=== PATIENT | male | born 1955 | race Hispanic/Latino ===

== ENCOUNTER 2023-07-07 18:47 | Emergency (ER) | payer OTHER ==
[~2023-07-07] VITALS: Ht 175.3 cm; Wt 79.4 kg
[2023-07-07 19:49] LABS: BASOPHILS # (AUTO) 0.04 K/uL (0.00-0.20); BASOPHILS % (AUTO) 0.5 % (0.0-5.0); EOSINOPHILS # (AUTO) 0.05 K/uL (0.00-0.70); EOSINOPHILS % (AUTO) 0.7 % (0.0-8.0); HEMATOCRIT 40.9 % (42-54); IMMATURE GRANULOCYTE ABSOLUTE 0.02 K/uL (0-1); LYMPHOCYTES % (AUTO) 27.3 % (21.0-51.0); MEAN CORPUSCULAR HEMOGLOBIN 31.6 pg (27.0-33.0); MONOCYTES # (AUTO) 0.6 K/uL (0.1-1.0); MONOCYTES % (AUTO) 8.5 % (3.0-13.0); NEUTROPHILS # (AUTO) 4.7 K/uL (1.8-7.7); NEUTROPHILS % (AUTO) 62.7 % (40.0-77.0); PLATELET COUNT (AUTO) 252 K/uL (130-400); RED CELL DISTRIBUTION WIDTH 12.7 % (11.0-15.5); WHITE BLOOD COUNT (AUTO) 7.4 K/uL (4.8-10.8)
[2023-07-07] MEDS ORDERED: CLONIDINE HCL 0.2 MG TABLET PO ONE (20:00)
[2023-07-07 20:03] LABS: CREATININE 1.1 mg/dL (0.5-1.5); POTASSIUM 4.2 mmol/L (3.5-5.1)
[2023-07-07 20:08] LABS: ALBUMIN 4.3 g/dL (3.5-5.0); BILIRUBIN,TOTAL 0.7 mg/dL (0.2-1.0); TOTAL PROTEIN, SERUM 7.8 g/dL (6.0-8.3)
[2023-07-07 20:16] LABS: B-TYPE NATRIURETIC PEPTIDE 118 pg/mL (0-100)
[2023-07-07] MEDS ORDERED: LISI20TA24 PO (21:02)
[2023-07-07 21:08] LABS: APPEARANCE,URINE CLEAR (CLEAR); BILIRUBIN,URINE NEGATIVE (NEGATIVE); GLUCOSE, URINE (UA) NEGATIVE (NEGATIVE); KETONES,URINE 5 mg/dL (NEGATIVE); LEUKOCYTE ESTERASE ,URINE NEGATIVE Leu/uL (NEGATIVE); NITRATE,URINE NEGATIVE (NEGATIVE); OCCULT BLOOD,URINE SMALL (NEGATIVE); PROTEIN,URINE NEGATIVE (NEGATIVE); UROBILINOGEN,URINE 0.2 mg/dL (0.2-1.0)
[2023-07-07 21:10] LABS: ADD UA MICROSCOPIC YES; COLOR,URINE LIGHT-YELLOW (YELLOW)
[2023-07-07 21:11] LABS: MUCUS,URINE RARE LPF (None Seen); WBC,URINE 0-1 /HPF (0-1)
[2023-07-07 21:22] VITALS: BP 166/81; PULSE 48; RESP 18; O2SAT 99
== END 2023-07-07 21:33 | disposition home or self-care (01) ==
LOC: EDH 18:47
DX: I10 Essential (primary) hypertension (principal); F41.9 Anxiety disorder, unspecified; F32.A Depression, unspecified
CPT/HCPCS: 36415; 71045; 80053; 81001; 82550; 83880; 84484; 85025; 85378; 93005

== ENCOUNTER 2025-05-07 06:14 | Observation (INO) | payer OTHER ==
[~2025-05-07] VITALS: Ht 175.3 cm; Wt 90.3 kg
[~2025-05-07 06:14] MED LIST: ARIP5TAB51 PO; BUSP10TA3 PO; CLON2TAB21 PO; ESCI-8 PO; ICOS1CAP PO; LISI40TA15 PO; PROP40TA7 PO; ROSU10TA72 PO
[2025-05-07 06:37] LABS: IMMATURE GRANULOCYTE ABSOLUTE 0.02 K/uL (0-1); NUCLEATED RED BLOOD CELLS 0.0 % (0.0-0.19); PLATELET COUNT (AUTO) 235 K/uL (130-400); RED BLOOD CELL COUNT(AUTO) 4.99 MIL/uL (4.50-6.20); RED CELL DISTRIBUTION WIDTH 12.9 % (11.0-15.5); WHITE BLOOD COUNT (AUTO) 7.9 K/uL (4.8-10.8)
--- NOTE | 2025-05-07 06:40 | ERN ---
General Chief Complaint: Chest Pain Stated Complaint: C/O CHEST PAIN Time Seen by MD: 06:32 Source: patient, family History of Present Illness Initial Comments Patient is a 70-year-old male who comes in with chest pain. This is the 1st time he has experienced this type of chest pain. He describes the pain as a kind of pressure. But he holds his hands open with his palms touching his chest as opposed to the classical Haines sign. He has no other associated symptoms such as shortness of breath or difficulty breathing or lightheadedness. No fevers no chills. He does have a history of panic attacks and he states that this feels different from his panic attacks. His brother mentioned that recently the patient has stopped one of his antidepressant medications. Allergies: Coded Allergies: No Known Allergies (Unverified Allergy, Unknown, 07/07/23) Home Meds Active Scripts Lisinopril (Lisinopril) 40 Mg Tablet, 1 TAB PO DAILY for 30 Days, #30 TAB 0 Refills Prov:ELLEN DAVID 10/06/24 Reported Medications Escitalopram Oxalate (Escitalopram Oxalate) 10 Mg Tablet, 1 TAB PO DAILY for 30 Days, #30 TAB 0 Refills 10/06/24 Clonazepam (Clonazepam) 2 Mg Tab.rapdis, 1 TAB PO TID PRN for ANXIETY/AGITATION for 30 Days, #90 TAB 0 Refills 10/06/24 Aripiprazole (Aripiprazole) 5 Mg Tablet, 2 MG PO HS, TAB 10/06/24 Icosapent Ethyl (Vascepa) 1 Gram Capsule, 2 GM PO BID, CAP 12/11/23 Buspirone HCl (Buspirone HCl) 10 Mg Tablet, 10 MG PO TID, TAB 12/11/23 Rosuvastatin Calcium (Rosuvastatin Calcium) 10 Mg Tablet, 10 MG PO HS, TAB 12/11/23 Propranolol HCl (Propranolol HCl) 40 Mg Tablet, 40 MG PO BID, TAB 12/11/23 Past Medical History Past Medical History: Diabetes-Type II, High Cholesterol, Hypertension Medical History Other: Panic Attacks, Depression Past Surgical History: Other Surgical History Other: HERNIA REPAIR Constitutional: (-) chills, (-) diaphoresis, (-) fever, (-) malaise, (-) weakness, (-) other documentation EENTM: (-) eye pain, (-) blurred vision, (-) tearing, (-) double vision, (-) ear pain, (-) ear discharge, (-) nose pain, (-) nose congestion, (-) throat pain, (-) Throat swelling, (-) mouth pain, (-) tooth pain, (-) mouth swelling, (-) other documentation Respiratory: (-) cough, (-) orthopnea, (-) short of breath, (-) stridor, (-) wheezing, (-) other documentation Cardiovascular: (+) chest pain Gastrointestinal/Abdominal: (-) nausea, (-) vomiting, (-) diarrhea, (-) abdominal pain, (-) abdominal distention, (-) constipation, (-) rectal bleeding, (-) dark stool/melena, (-) other documentation Genitourinary: (-) penile discharge, (-) dysuria, (-) frequency, (-) hematuria, (-) pain, (-) other documentation Musculoskeletal: (-) Neck pain, (-) back pain, (-) Flank Pain, (-) joint pain, (-) joint swelling, (-) muscle pain, (-) muscle stiffness, (-) gout, (-) other documentation Neuro: (-) altered mental status, (-) headache, (-) syncope, (-) paralysis, (-) numbness, (-) seizure, (-) pre-existing deficit, (-) tremors, (-) weakness, (-) dizziness, (-) slurred speech, (-) vertigo, (-) other documentation Physical Exam General Appearance: (+) mild distress Orientation: (+) alert, (+) oriented x 3 Head/Face Trauma: No Eye: bilateral eye normal inspection, bilateral eye PERRL, bilateral eye EOMI Ear, Nose, Throat: (+) hearing grossly normal, (+) normal ENT inspection Neck: (+) normal inspection, (+) supple, (+) full range of motion Respiratory: (+) chest non-tender, (+) lungs clear, (+) well ventilated Heart: (+) regular, (+) no gallop Vascular: (+) no edema, (+) normal peripheral pulse, (+) no JVD Gastrointestinal: (+) soft, (+) non-tender, (+) bowel sound present Extremities: (+) normal range of motion, (+) non-tender, (+) normal inspection, (+) no pedal edema Neurologic/Psychiatric: (+) normal speech, (+) no motor defecits Results Laboratory and Microbiology Lab and Micro Result Laboratory Tests Test 05/07/25 06:25 White Blood Count 7.9 K/uL (4.8-10.8) Red Blood Count 4.99 MIL/uL (4.50-6.20) Hemoglobin 15.5 g/dL (14.0-18.0) Hematocrit 46.9 % (42-54) Mean Corpuscular Volume 94.0 fL (79-99) Mean Corpuscular Hemoglobin 31.1 pg (27.0-33.0) Mean Corpuscular Hemoglobin Concent 33.0 g/dL (32.0-36.0) Red Cell Distribution Width 12.9 % (11.0-15.5) Platelet Count 235 K/uL (130-400) Mean Platelet Volume 9.1 fL (7.5-10.5) Immature Granulocyte % (Auto) 0.3 % (0-1) Neutrophils (%) (Auto) 50.6 % (40.0-77.0) Lymphocytes (%) (Auto) 36.9 % (21.0-51.0) Monocytes (%) (Auto) 10.4 % (3.0-13.0) Eosinophils (%) (Auto) 1.3 % (0.0-8.0) Basophils (%) (Auto) 0.5 % (0.0-5.0) Neutrophils # (Auto) 4.0 K/uL (1.8-7.7) Lymphocytes # (Auto) 2.9 K/uL (1.0-4.8) Monocytes # (Auto) 0.8 K/uL (0.1-1.0) Eosinophils # (Auto) 0.10 K/uL (0.00-0.70) Basophils # (Auto) 0.04 K/uL (0.00-0.20) Absolute Immature Granulocyte (auto 0.02 K/uL (0-1) Nucleated Red Blood Cells 0.0 % (0.0-0.19) Sodium Level 141 mmol/L (136-145) Potassium Level 4.4 mmol/L (3.5-5.1) Chloride Level 102 mmol/L (101-111) Carbon Dioxide Level 32 mmol/L (21-32) Blood Urea Nitrogen 16 mg/dL (7-18) Creatinine 1.2 mg/dL (0.5-1.3) Glomerular Filtration Rate Calc 66 mL/min (>90) Random Glucose 102 mg/dL (70-105) Total Calcium 9.4 mg/dL (8.5-10.1) Total Creatine Kinase 151 U/L (21-232) # Troponin I High Sensitivity 10 ng/L (4-75) MDM MDM: Differential diagnosis: Anxiety attack, panic attack, hyperventilation syndrome, acute MD, pulmonary disease Rationale: Tests considered and ordered secondary to shared decision making include: Previous outside records reviewed: Old ER visits. Risk of complication and/or morbidity or mortality of patient management: None Medications-Per medication reconciliation Need for hospitalization: Patient does meet criteria for hospitalization. Need for emergency major/minor surgery: No There are no social concerns with this patient. Prescription drug management Prescriptions will include symptomatic care Patient's prior external medical records from other ER visits were reviewed by me as indicated. Prior testing and results from previous visits were reviewed. Prior tests were taken into account with medical decision making and resource utilization, independent historian/historians were used to obtain complete medical history. I independently interpreted the test that were performed, results were reviewed by me and considered findings on radiology if ordered. I have signed out care for this patient to Dr. Antony. Chief complaint is chest pain Historian is patient Comorbidities include prediabetes, hypertension, dyslipidemia No limitations Differential diagnosis as above Vital signs are stable Lab work is unremarkable EKG shows sinus rhythm, rate 63, normal axis, good R-wave progression. Right bundle branch block morphology. No STEMI. Independently interpreted by me. Patient has a heart score of four based on risk factors and age. Given an aspirin in the ER Hospitalist consulted for admission ED Course Orders Procedure Category Date Status Time Vital Signs Per CPOE 05/07/25 Transmitted Routine 06:22 Chest 1vw RAD 05/07/25 Resulted 06:22 12 Lead Ekg Tracing- EKG 05/07/25 Complete Technical 06:22 Oxygen By Nc/Pulse Ox CPOE 05/07/25 Transmitted 06:22 Maintain Iv CPOE 05/07/25 Transmitted 06:22 Iv Insertion CPOE 05/07/25 Transmitted 06:22 Cardiac Monitoring CPOE 05/07/25 Transmitted 06:22 Pulse Oximetry With CPOE 05/07/25 Transmitted Vs And Prn 06:22 Cbc With Differential LAB 05/07/25 Complete 06:22 Activity: Br W/Brp CPOE 05/07/25 Transmitted With Assist 06:22 Creatine Kinase, Total LAB 05/07/25 Complete 06:22 Troponin I High LAB 05/07/25 Complete Sensitivity 06:22 Urinalysis Profile LAB 05/07/25 In Process 06:22 Basic Metabolic Panel LAB 05/07/25 Complete 06:22 Lactated Ringers PHA 05/07/25 Complete 1000ml (Lactated 06:32 Troponin I High LAB 05/07/25 Logged Sensitivity 08:23 Current Medications Medications (Trade) Dose Ordered Sig/Glenda Route PRN Reason Start Time Stop Time Status Last Admin Dose Admin Lactated Ringer's (Lactated Ringers 1000ml) 1,000 ml BOLUS STAT IV 05/07/25 06:32 05/07/25 06:35 DC 05/07/25 06:41 Vital Signs Date Time Temp Pulse Resp B/P (MAP) Pulse Ox O2 Delivery O2 Flow Rate FiO2 05/07/25 08:15 97.9 56 18 134/66 98 Room Air* 0 05/07/25 06:32 98.2 61 13 143/76 98 Room Air* 0 05/07/25 06:18 98.2 58 20 160/83 100 Room Air DX & DISP Disposition: Inpatient Departure Impression: Primary Impression: Unstable angina Condition: Stable Referrals: LARY HERNANDEZ MD (PCP) EDISON BALTAZAR MD May 07, 2025 06:40 ELIDA ANTONY DO May 07, 2025 08:38
[2025-05-07] MEDS: LACTATED RINGERS 1000ML IV STA (06:41)
[2025-05-07 06:45] LABS: CREATININE 1.2 mg/dL (0.5-1.3); GLOMERULAR FILTR. RATE CALC 66.0 mL/min (>90); GLUCOSE,RANDOM 102.0 mg/dL (70-105); SODIUM SERUM 141.0 mmol/L (136-145); UREA NITROGEN, BLOOD 16.0 mg/dL (7-18)
--- NOTE | 2025-05-07 06:49 | EKG ---
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
[2025-05-07 06:54] LABS: CREATINE KINASE, TOTAL 151.0 U/L (21-232)
--- NOTE | 2025-05-07 07:30 | HMCIMG ---
EXAM: CR Chest, 1 View. CLINICAL HISTORY: CHEST PAIN COMPARISON: 10/05/24 17:44 EST CR - CHEST 1VW FINDINGS: LUNGS: The lungs show no infiltrate or other acute finding. PLEURAL SPACES: No pleural effusion or pneumothorax. MEDIASTINUM: The cardiomediastinal silhouette is within normal limits. BONES: No aggressive appearing osseous lesion seen. IMPRESSION: No acute cardiopulmonary pathology is evident. /[place]
[2025-05-07 08:35] LABS: APPEARANCE,URINE CLEAR (CLEAR); GLUCOSE, URINE (UA) NEGATIVE (NEGATIVE); LEUKOCYTE ESTERASE ,URINE NEGATIVE Leu/uL (NEGATIVE); NITRATE,URINE NEGATIVE (NEGATIVE); OCCULT BLOOD,URINE +- (TRACE) (NEGATIVE)
[2025-05-07 08:37] LABS: ADD UA MICROSCOPIC YES
[2025-05-07 09:29] LABS: CREATINE KINASE, TOTAL 128.0 U/L (21-232)
[2025-05-07] MEDS: ENOXAPARIN SODIUM 40 MG/0.4 ML SYRINGE SQ SCH (09:29)
[2025-05-07] MEDS: LISINOPRIL 10 MG TABLET PO SCH (09:29)
[2025-05-07] MEDS: ASPIRIN 325MG TAB PO ONE (09:30)
[2025-05-07] MEDS ORDERED: AMLO-257 PO (09:38)
[2025-05-07] MEDS ORDERED: DULO20CA18 PO (09:38)
--- NOTE | 2025-05-07 13:24 | HP ---
[facility] HISTORY & PHYSICAL Date Patient Seen: May 07, 2025 Time of Visit: 13:10 Supervising Physician: TONO DEWITT MD Primary Care Physician: LARY HERNANDEZ MD Outpatient Specialists: [ ] Inpatient Consults: PROBLEM LIST: Unstable angina, POA Heart score of 5 Essential hypertension Right bundle-branch block ( unknown if new) Hyperglycemia Elevated D-dimer Obese BMI 29.2 Strong family history of coronary artery disease HPI: This is a 70-year-old male with a past medical history of essential hypertension, anxiety, hypercholesteremia, and strong family history of coronary artery disease who presented to the ED chest pressure x5 days. In the ED laboratory was unremarkable chest x-ray showed no cardiopulmonary pathology.. Initial troponins were negative. Heart score of 5. Patient was admitted under observation for cardiac workup. On assessment patient is awake alert and oriented x3. He is hemodynamically stable. In no apparent distress. Brothers at the bedside. Patient reports chest pain two and a 10 but persistent which is what brought him into the ED for evaluation. He reports he does have history of anxiety but has been taking his medication clonazepam and pain still persisted. Patient reports he does not do much walking given that his job requires him to sit down for long hours. 2D echo has been done pending reading. D-dimer was elevated at 541. We will order ultrasound bilateral lower extremities and CTA to rule out PE. PAST MEDICAL HX: see above PAST SURGICAL HX: noncontributory SOCIAL HISTORY: No tobacco, ETOH, or illicit drug use Coded Allergies: No Known Allergies (Unverified Allergy, Unknown, 07/07/23) REVIEW OF SYSTEMS: Const: no fever, fatigue, or weight changes Eyes: no recent vision problems ENT: No congestion, ear pain, or sore throat C/V: + chest pain Resp: No cough, congestion, wheezing , or Shortness of breath GI: No abdominal pain, nausea, vomiting, constipation, or diarrhea : No incontinence of or dyuria M/S: No joint or pain swelling Skin: No rash Neuro: no headache, focal numbness, or weakness, dizziness or seizures Psych: no depression or anxiety Heme: no abnormal bruising or bleeding Lymph: no swollen glands PHYSICAL EXAM: GENERAL: alert, weak, awake oriented x 3 HEENT: EOMI, Sclera non icteric, moist mucosa NECK: Supple, no JVD, trachea midline LUNGS: Clear breath sounds bilaterally. No wheezes HEART: Regular rate and rhythm. Normal S1 and S2, without murmurs ABD: Abdomen soft, nontender. Bowel sounds present EXT: No clubbing cyanosis or edema NEURO: Alert and oriented to person, follows commands Vital Signs (last 8hr) Date Time Temp Pulse Resp B/P (MAP) Pulse Ox O2 Delivery O2 Flow Rate FiO2 05/07/25 11:00 60 16 121/77 98 Room Air* 0 21 05/07/25 08:15 97.9 56 18 134/66 98 Room Air* 0 21 05/07/25 06:32 98.2 61 13 143/76 98 Room Air* 0 21 05/07/25 06:18 98.2 58 20 160/83 100 Room Air LABS: Hematology Labs: Test 05/07/25 06:25 Range/Units White Blood Count 7.9 4.8-10.8 K/uL Red Blood Count 4.99 4.50-6.20 MIL/uL Hemoglobin 15.5 14.0-18.0 g/dL Hematocrit 46.9 42-54 % Mean Corpuscular Volume 94.0 79-99 fL Mean Corpuscular Hemoglobin 31.1 27.0-33.0 pg Mean Corpuscular Hemoglobin Concent 33.0 32.0-36.0 g/dL Red Cell Distribution Width 12.9 11.0-15.5 % Platelet Count 235 130-400 K/uL Mean Platelet Volume 9.1 7.5-10.5 fL Immature Granulocyte % (Auto) 0.3 0-1 % Neutrophils (%) (Auto) 50.6 40.0-77.0 % Lymphocytes (%) (Auto) 36.9 21.0-51.0 % Monocytes (%) (Auto) 10.4 3.0-13.0 % Eosinophils (%) (Auto) 1.3 0.0-8.0 % Basophils (%) (Auto) 0.5 0.0-5.0 % Neutrophils # (Auto) 4.0 1.8-7.7 K/uL Lymphocytes # (Auto) 2.9 1.0-4.8 K/uL Monocytes # (Auto) 0.8 0.1-1.0 K/uL Eosinophils # (Auto) 0.10 0.00-0.70 K/uL Basophils # (Auto) 0.04 0.00-0.20 K/uL Absolute Immature Granulocyte (auto 0.02 0-1 K/uL Nucleated Red Blood Cells 0.0 0.0-0.19 % Chemistry Labs: Test 05/07/25 10:31 05/07/25 08:42 05/07/25 06:38 05/07/25 06:25 Range/Units Ionized Calcium 1.22 1.15-1.33 MMOL/L Total Creatine Kinase 128 21-232 U/L Troponin I High Sensitivity 9 4-75 ng/L Thyroid Stimulating Hormone (TSH) 2.36 0.36-3.74 uIU/mL Hemoglobin A1c 6.2 H 4.0-6.0 % Estimated Average Glucose (eAG) 131 H 70-126 mg/dL B-Type Natriuretic Peptide 10 0-100 pg/mL Procalcitonin < 0.05 L 0.05-0.5 ng/mL Sodium Level 141 136-145 mmol/L Potassium Level 4.4 3.5-5.1 mmol/L Chloride Level 102 101-111 mmol/L Carbon Dioxide Level 32 21-32 mmol/L Blood Urea Nitrogen 16 7-18 mg/dL Creatinine 1.2 0.5-1.3 mg/dL Glomerular Filtration Rate Calc 66 >90 mL/min Random Glucose 102 70-105 mg/dL Total Calcium 9.4 8.5-10.1 mg/dL Coagulation Labs: Test 05/07/25 06:38 Range/Units D-Dimer Quantitative (PE/DVT) 541 *H 0-500 ng/mL DIAGNOSTICS / RADIOLOGY RESULTS: [place] [id number] [address] IMAGING REPORT Signed PATIENT: JUAN CARLOS DEWITT MR#: [id number] : 1955 SEX: M AGE: 70 LOCATION: ED ORDER 3 STATUS: REG ER REPORT#: [id number] SERVICE 1 REASON: CHEST PAIN ORDERING PHYSICIAN: EDISON BALTAZAR MD PROCEDURE: CXR1VW - CHEST 1VW EXAM: CR Chest, 1 View. CLINICAL HISTORY: CHEST PAIN COMPARISON: 10/05/24 17:44 EST CR - CHEST 1VW FINDINGS: LUNGS: The lungs show no infiltrate or other acute finding. PLEURAL SPACES: No pleural effusion or pneumothorax. MEDIASTINUM: The cardiomediastinal silhouette is within normal limits. BONES: No aggressive appearing osseous lesion seen. IMPRESSION: No acute cardiopulmonary pathology is evident. /[place] DICTATED BY: QUEENIE MC Jr., MD DATE: 05/07/25828 ELECTRONICALLY SIGNED BY: QUEENIE MC Jr., MD DATE: 05/07/25828 ] PLAN We will admit under observation to [facility] with telemetry. CBC, CMP, serial troponins Cardiac monitoring EKG shows sinus rhythm heart rate 63 , right bundle-branch block. D-dimer elevated-we will order CTA for PE rule out Ultrasound bilateral lower extremities 2D echo pending reading TSH Daily aspirin, simvastatin, metoprolol, lisinopril, PPI for PUD prophylaxis Lovenox for DVT prophylaxis If negative cardiac workup DC in the next 24 hours. NEURO: Minimize central acting medications as possible. Maintain fall precautions, adequate lighting during the day PULMONARY: Supplemental 02 as needed. Maintain aspiration precautions at all times CARDIOVASCULAR: Follow hemodynamics. Vital signs per facility protocol GI & NUTRITION: Continue with nutritional support. Continue stool softeners and laxatives as needed. KIDNEYS & ELECTROLYTES: Strict monitoring of intake, output and overall fluid balance. Avoid nephrotoxic medications to the extent possible. Medications to be dosed according to renal function. Monitor electrolytes and replace as needed ENDOCRINE: Maintain blood glucose between 100-180 at all times. Hypoglycemia protocol in place INFECTIOUS DISEASE: Trend temperature, WBC and procalcitonin level Follow cultures, deescalate antibiotics as soon as possible. Panculture if new onset fever ONCOLOGY/HEMATOLOGY/COAGULATION: Monitor for s/s of bleeding Monitor hemoglobin, coagulation studies as needed SKIN: Pressure ulcer prevention per facility protocol Specialty mattress ORTHO/REHAB: Continue PT/OT Prophylaxis: Continue GI and DVT prophylaxis Code Status: Full Resuscitation Disposition: TBD Other: Total patient care time exceeds 35 minutes excluding all procedures. ATTESTATION BY PHYSICIAN The patient has been seen and evaluated, the case has been discussed with the BALL ROLLING MACHINE OPERATOR, I agree with the clinical findings and plan of care. Tono Dewitt MD, NELLY J ARNP May 07, 2025 13:24
[2025-05-07 13:39] LABS: AMPHET/METH SCREEN,URINE NEGATIVE (NEGATIVE); BARBITURATE SCREEN, URINE NEGATIVE (NEGATIVE); CANNABINOID SCREEN,URINE NEGATIVE (NEGATIVE); COCAINE SCREEN,URINE NEGATIVE (NEGATIVE)
[2025-05-07] MEDS ORDERED: IOHEXOL-350 75 ML VIAL IV ONE (13:55)
--- NOTE | 2025-05-07 14:16 | NUR ---
DCP: HOME Pt currently lives with his son Kyrie Dewitt [phone]. Pt does not have any DME, home health, or provider services. Pt is able to complete ADLs independently. PCP is Dr. Johny Hawkins and uses the [facility] for any RX needs. At [place] pt will want to go home and family can assist with transportation services. Addendum: 05/07/25 at 1418 by SALLY LESLIE SS Amended: Links added.
--- NOTE | 2025-05-07 14:45 | HMCIMG ---
EXAM: CTA Chest with and without Intravenous Contrast for PE evaluation CLINICAL HISTORY: ELEVATED D-DIMER TECHNIQUE: Axial CTA images of the chest with and without intravenous contrast using a pulmonary embolism protocol. Multiplanar reconstructed images were created and reviewed. CONTRAST: None. was administered without incident. COMPARISON: Study dated FINDINGS: PULMONARY ARTERIES: No evidence of central or segmental pulmonary embolism is seen. AORTA: There is no evidence for aneurysm or dissection of the thoracic aorta. LUNGS: No pulmonary infiltrates. Bibasilar atelectasis. PLEURAL SPACES: No evidence of pneumothorax. No pleural effusion. HEART: Heart size is within normal limits. No significant pericardial effusion. LYMPH NODES: No lymphadenopathy is evident. BONES: No focal osseous abnormality or acute fracture. UPPER ABDOMEN: Enlarged liver with fatty infiltration. IMPRESSION: No pulmonary embolus. No thoracic aortic aneurysm or dissection. No pulmonary infiltrates or pleural effusions. Bibasilar atelectasis. Enlarged liver with fatty infiltration. /[place]
[2025-05-07 15:22] LABS: CREATINE KINASE, TOTAL 118.0 U/L (21-232)
--- NOTE | 2025-05-07 18:25 | HMCSR ---
APPROVED REPORT EXAM: Two-dimensional and M-mode echocardiogram with Doppler and color Doppler. INDICATION ICD: Chest pain R07.9 rule out valvulopathy 2D Dimensions RVDd4.5 cmLVEF(%)56.8 (>50%)LA ESV INDEX (BP)12.56 mL/m2 IVSd1.0 (0.7-1.1cm)FS(%)29 % LVDd4.2 (3.8-5.6cm)LA (2D)3.7 (1.6-4.0cm) PWd1.0 (0.7-1.1cm)Ao Root(2D)3.5 (2.0-3.7cm) IVSs1.4 cmLVOT diam2.3 (1.8-2.4cm) LVDs2.9 (2.5-4.0cm) PWs1.5 cm Deformation Strain Apical 4-13.6 % Apical 2-13.3 % Apical 3-9.5 % Global Strain-12.1 % M-Mode Dimensions EPSS0.5 cm LA (MM)3.8 (1.6-4.0cm) Ao Root(MM)3.0 (2.0-3.7cm) Aortic Valve AoV Vmax1.0 m/Deandre Peak GR3.9 mmHgLVOT Vmax0.8 m/s AoV VTI0.2 mAo Mean GR2.2 mmHgLVOT VTI0.16 m ABIGAIL (VMAX)3.32 cm2AVA (VTI) 3.4 cm2 Mitral Valve MV E Vmax56.0 cm/sDECEL Gasq269 ms MV A Vmax52.8 cm/sP 1/2 T56 ms E/A ratio1.1MVA (PHT)4.0 cm2 TDI E/E' Medial9.6E/E' Lateral9.0 Medial E' Peak V5.84 cm/sLateral E' Peak V6.23 cm/s Pulmonary Valve PV Vmax1.1 m/sPV VTI0.21 mPV Mean GR2.7 mmHg PV Peak GR5.2 mmHgPI End Bridget. Leonard 109.1 cm/s Left Ventricle The left ventricle is normal size. There is normal left ventricular wall thickness. LVEF is 60-65%. T he left ventricular diastolic function is normal. Right Ventricle The right ventricle is moderately dilated. The right ventricular systolic function is normal. Atria The left atrium is small. The right atrium size is normal. Aortic Valve The aortic valve is normal in structure. No aortic regurgitation is present. There is no aortic valvu lar stenosis. Mitral Valve The mitral valve is normal in structure. There is no mitral valve regurgitation noted. There is no mi tral valve stenosis. Tricuspid Valve The tricuspid valve is normal in structure. There is no tricuspid valve regurgitation noted. Pulmonic Valve The pulmonary valve is normal in structure. There is no pulmonic valvular regurgitation. Great Vessels The aortic root is normal in size. The IVC is normal in size and collapses >50% with inspiration. Pericardium There is no pericardial effusion. Other Information Quality : Technically difficult study due to body habitus Conclusion The left ventricle is normal size. LVEF is 60-65%. The left ventricular diastolic function is normal. The right ventricle is moderately dilated. The right ventricular systolic function is normal. The left atrium is small. The right atrium size is normal. No valvular pathology. There is no pericardial effusion.
--- NOTE | 2025-05-07 19:24 | NUR ---
PT CARE ASSUMED AT THIS TIME
[2025-05-07 21:11] LABS: CREATINE KINASE, TOTAL 139.0 U/L (21-232)
--- NOTE | 2025-05-07 22:09 | NUR ---
REPORT GIVEN TO WARREN NICOLE AT THIS TIME
[2025-05-07 22:20] VITALS: BP 117/73; PULSE 63; RESP 18; TEMP 98.1
--- NOTE | 2025-05-07 22:30 | NUR ---
ADMIT Patient admitted from ER, report given by nurse Paris. Vitals stable. Denies chest pain or shortness of breath. Educated on use of call light and fall precautions, verbalized understanding. Assisted to restroom, steady gait. Voided. Assisted back to bed. Bed alarm on. Call light within reach. Plan of care discussed.
[2025-05-08 04:00] VITALS: BP 114/66; PULSE 62; RESP 19; TEMP 98.4
[2025-05-08 05:05] LABS: IMMATURE GRANULOCYTE ABSOLUTE 0.01 K/uL (0-1); NUCLEATED RED BLOOD CELLS 0.0 % (0.0-0.19); PLATELET COUNT (AUTO) 201 K/uL (130-400); RED BLOOD CELL COUNT(AUTO) 4.22 MIL/uL (4.50-6.20); RED CELL DISTRIBUTION WIDTH 13.0 % (11.0-15.5); WHITE BLOOD COUNT (AUTO) 7.0 K/uL (4.8-10.8)
[2025-05-08 05:31] LABS: LDL DIRECT 47.0 mg/dL (0-99); PHOSPHORUS 3.5 mg/dL (2.5-4.9)
--- NOTE | 2025-05-08 07:29 | HMCIMG ---
EXAMINATION: SPECTRAL DOPPLER ULTRASOUND EXAMINATION OF THE BILATERAL LOWER EXTREMITY VEINS. CLINICAL HISTORY: To rule out DVT. COMPARISON: Bilateral lower extremity venous doppler dated 10/06/2024. TECHNIQUE: Real-time ultrasound scan of the veins of the bilateral lower extremity with color Doppler flow, spectral waveform analysis and compression. FINDINGS: DEEP VEINS: The common femoral, superficial femoral, and popliteal veins are echolucent and compressible. There is normal color Doppler flow throughout. The visualized calf veins appear patent. SUPERFICIAL VEINS: The greater saphenous veins are patent and compressible. SOFT TISSUES: No popliteal fossa cyst or other abnormalities. IMPRESSION: No deep venous thrombosis evident in the bilateral lower extremity. No superficial thrombophlebitis in the bilateral lower extremity. /[place]
[2025-05-08 08:00] VITALS: BP 107/69; PULSE 73; RESP 18; TEMP 98.9
[2025-05-08 09:09] VITALS: O2SAT 94
[2025-05-08] MEDS: ASPIRIN 81MG CHEW TAB PO SCH (09:09)
--- NOTE | 2025-05-08 10:54 | DS ---
[facility] DISCHARGE SUMMARY Date Patient Seen: May 08, 2025 Time Supervising physician: Dr. Andrea Dewitt Primary Care Physician: LARY HERNANDEZ MD Outpatient Specialists: [ ] Inpatient Consults: PROBLEM LIST: Unstable angina, POA resolved Heart score of 5 Essential hypertension Right bundle-branch block ( unknown if new) Hyperglycemia Elevated D-dimer Obese BMI 29.2 Strong family history of coronary artery disease HOSPITAL COURSE: HPI (per admitting provider) This is a 70-year-old male with a past medical history of essential hypertension, anxiety, hypercholesteremia, and strong family history of coronary artery disease who presented to the ED chest pressure x5 days. In the ED laboratory was unremarkable chest x-ray showed no cardiopulmonary pathology.. Initial troponins were negative. Heart score of 5. Patient was admitted under observation for cardiac workup. On assessment patient is awake alert and oriented x3. He is hemodynamically stable. In no apparent distress. Brothers at the bedside. Patient reports chest pain two and a 10 but persistent which is what brought him into the ED for evaluation. He reports he does have history of anxiety but has been taking his medication clonazepam and pain still persisted. Patient reports he does not do much walking given that his job requires him to sit down for long hours. 2D echo has been done pending reading. D-dimer was elevated at 541. We will order ultrasound bilateral lower extremities and CTA to rule out PE. Today patient is seen sitting up in bed accompanied by his brother. Patient with no signs of acute distress. Patient denies chest discomfort, chest pain, or dyspnea with exertion. Troponins were negative x4. chest x-ray showed no acute cardiopulmonary pathology. Patient's 2D echo showed LVEF 60-65% with ventricular diastolic function normal. No valvular pathology. No pericardial effusion. Patient had a CT of the chest performed secondary to elevated D-dimer and results no PE, no thoracic aortic aneurysm or dissection. No pulmonary infiltrates or pleural effusions. Patient had bilateral lower extremity venous Dopplers and results were negative for DVT. The patient was informed of these findings. Patient has been advised to follow up with PCP in the next 1-2 days. Patient has been advised to continue current home medications. Patient verbalized understanding. Vital signs are stable. Labs are within normal limits. Med rec has been completed. Education regarding current diagnosis been provided to the patient. All questions have been answered. Patient to be discharged home. The patient was treated for the following problems: ACTIVE PROBLEM LIST FOR THE HOSPITALIZATION: Unstable angina, POA resolved Essential hypertension Right bundle-branch block ( unknown if new) Hyperglycemia Elevated D-dimer Obese BMI 29.2 Strong family history of coronary artery disease CHRONIC PROBLEMS: continue previous management per PCP unless otherwise indicated HEAD OF DATA FINDINGS/RECOMMENDATIONS: [ ] PROCEDURES: as mentioned above DISCHARGE MEDICATIONS: See DC med list Pt hemodynamically stable and afebrile at time of discharge. PCP notified of patients admission, hospital course and discharge. Continued Medications: Amlodipine Besylate (Amlodipine Besylate) 5 Mg Tablet 5 MG PO DAILY, TAB Aripiprazole (Aripiprazole) 5 Mg Tablet 2 MG PO HS, TAB Buspirone HCl (Buspirone HCl) 10 Mg Tablet 10 MG PO TID, TAB Clonazepam (Clonazepam) 2 Mg Tab.rapdis 1 TAB PO TID PRN for ANXIETY/AGITATION for 30 Days, #90 TAB 0 Refills Escitalopram Oxalate (Escitalopram Oxalate) 10 Mg Tablet 1 TAB PO DAILY for 30 Days, #30 TAB 0 Refills Icosapent Ethyl (Vascepa) 1 Gram Capsule 2 GM PO BID, CAP Lisinopril (Lisinopril) 40 Mg Tablet 1 TAB PO DAILY for 30 Days, #30 TAB 0 Refills Propranolol HCl (Propranolol HCl) 40 Mg Tablet 40 MG PO BID, TAB Rosuvastatin Calcium (Rosuvastatin Calcium) 10 Mg Tablet 10 MG PO HS, TAB PHYSICAL EXAM: GENERAL: alert, weak, awake oriented x 3 HEENT: EOMI, Sclera non icteric, moist mucosa NECK: Supple, no JVD, trachea midline LUNGS: Clear breath sounds bilaterally. No wheezes HEART: Regular rate and rhythm. Normal S1 and S2, without murmurs ABD: Abdomen soft, nontender. Bowel sounds present EXT: No clubbing cyanosis or edema NEURO: Alert and oriented to person, follows commands FOLLOW-UP: Follow-up with PCP in 2-3 days RECOMMENDATIONS: See Discharge Instructions This case was seen and discussed with my supervising physician. More than 30 minutes spent on discharge process, including evaluation of the patient, discussion with nursing staff, medication reconciliation and follow-up appointments ATTESTATION BY PHYSICIAN The patient has been seen and evaluated, the case has been discussed with the BEEF BONER, I agree with the clinical findings and plan of care. Tono Dewitt MD, ECTOR N BEEF BONER May 08, 2025 10:54
[2025-05-08 12:00] VITALS: BP 96/45; PULSE 67; RESP 18; TEMP 98.4
--- NOTE | 2025-05-08 12:17 | NUR ---
DISCHARGE PT PIV DC'D PT VERBALIZED UNDERSTANDING OF DISCHARGE INSTRUCTIONS PT GATHERED AND TOOK ALL BELONGINGS PT HAD NO FURTHER QUESTIONS AT TIME OF DISCHARGE FAMILY AT BEDSIDE
== END 2025-05-08 12:30 | disposition home or self-care (01) ==
LOC: EDH 06:14 → EDHIP 08:42 → 4CH 22:20
PROVIDERS: ADMIT Internal Medicine; ATTEND Internal Medicine
DX: I10 Essential (primary) hypertension (principal); I45.10 Unspecified right bundle-branch block; E11.65 Type 2 diabetes mellitus with hyperglycemia; R79.89 Other specified abnormal findings of blood chemistry; R60.0 Localized edema; E66.9 Obesity, unspecified; F41.0 Panic disorder [episodic paroxysmal anxiety]; E78.00 Pure hypercholesterolemia, unspecified; F32.A Depression, unspecified; Z79.899 Other long term (current) drug therapy; Z68.29 Body mass index [BMI] 29.0-29.9, adult
CPT/HCPCS: 96374; 96372 ×2; 82550 ×4; 81001; 99285; 83036; 84443 ×2; 84484 ×4; 82330; 80048; 83880; 80305; 85025 ×2; 85378; 36415 ×2; 71045; 71270; 93306; 93356; 93970; 93005; 84145; 83735; 84100; 80061; G0378 ×28; J7120; J2270; J1650 ×2; Q9967

== ENCOUNTER 2025-08-31 18:21 | Emergency (ER) | payer OTHER ==
[~2025-08-31] VITALS: Ht 175.3 cm; Wt 89.4 kg
[~2025-08-31 18:21] MED LIST changes: +AMLO-257 PO; -ROSU10TA72 PO; +ROSU10TA98 PO
[2025-08-31 18:57] LABS: IMMATURE GRANULOCYTE ABSOLUTE 0.02 K/uL (0-1); NUCLEATED RED BLOOD CELLS 0.0 % (0.0-0.19); PLATELET COUNT (AUTO) 280 K/uL (130-400); RED BLOOD CELL COUNT(AUTO) 4.98 MIL/uL (4.50-6.20); RED CELL DISTRIBUTION WIDTH 12.9 % (11.0-15.5); WHITE BLOOD COUNT (AUTO) 6.3 K/uL (4.8-10.8)
[2025-08-31 19:05] LABS: CREATININE 1.2 mg/dL (0.5-1.3); GLOMERULAR FILTR. RATE CALC 66.0 mL/min (>90); GLUCOSE,RANDOM 138.0 mg/dL (70-105); SODIUM SERUM 132.0 mmol/L (136-145); UREA NITROGEN, BLOOD 21.0 mg/dL (7-18)
[2025-08-31 19:10] LABS: CREATINE KINASE, TOTAL 94.0 U/L (21-232)
--- NOTE | 2025-08-31 19:20 | NUR ---
PT TO RADIOLOGY
--- NOTE | 2025-08-31 19:27 | NUR ---
RETURNED FROM RADIOLOGY
--- NOTE | 2025-08-31 19:52 | HMCIMG ---
EXAM: CR Chest, 1 View. CLINICAL HISTORY: CHEST PAIN COMPARISON: None provided. FINDINGS: LUNGS: There is no mass, infiltrate, or acute pulmonary abnormality. PLEURAL SPACES: No pleural effusion or pneumothorax. MEDIASTINUM: The cardiomediastinal silhouette is within normal limits. BONES: No acute osseous abnormality. IMPRESSION: No acute cardiopulmonary pathology is evident. /[place]
--- NOTE | 2025-08-31 20:19 | NUR ---
PT CONNECTED TO MONITOR, ORIENTED TO ROOM, CALL LIGHT WITHIN REACH
--- NOTE | 2025-08-31 21:30 | ERN ---
ED Note History of Present Illness Stated Complaint: CP Chief Complaint: Chest Pain Time Seen by MD: 18:24 Time Seen by Midlevel: 18:25 Dictation: 70-year-old male presents to the emergency department due to reported feeling anxious and having some mild chest discomfort. He states that he has a history of anxiety and believes that it is primarily affecting him the most at this given time. There is no report of any shortness of breath associated with this. He states that he is currently under stress and is pending to see his PCP. The patient states that he is currently on antidepressant medication but at this time denies having any suicidal or homicidal ideation. Upon initial evaluation, the patient presents in no acute respiratory distress. Allergies: Coded Allergies: No Known Allergies (Unverified Allergy, Unknown, 07/07/23) Emergency Care VALUE ANALYSIS COORDINATOR: None Home Meds Active Scripts Lisinopril (Lisinopril) 40 Mg Tablet, 1 TAB PO DAILY for 30 Days, #30 TAB 0 Refills Prov:ELLEN DAVID PAC 10/06/24 Reported Medications Amlodipine Besylate (Amlodipine Besylate) 5 Mg Tablet, 5 MG PO DAILY, TAB 05/07/25 Escitalopram Oxalate (Escitalopram Oxalate) 10 Mg Tablet, 1 TAB PO DAILY for 30 Days, #30 TAB 0 Refills 10/06/24 Clonazepam (Clonazepam) 2 Mg Tab.rapdis, 1 TAB PO TID PRN for ANXIETY/AGITATION for 30 Days, #90 TAB 0 Refills 10/06/24 Aripiprazole (Aripiprazole) 5 Mg Tablet, 2 MG PO HS, TAB 10/06/24 Icosapent Ethyl (Vascepa) 1 Gram Capsule, 2 GM PO BID, CAP 12/11/23 Buspirone HCl (Buspirone HCl) 10 Mg Tablet, 10 MG PO TID, TAB 12/11/23 Rosuvastatin Calcium (Rosuvastatin Calcium) 10 Mg Tablet, 10 MG PO HS, TAB 12/11/23 Propranolol HCl (Propranolol HCl) 40 Mg Tablet, 40 MG PO BID, TAB 12/11/23 Past Medical History Past Medical History: Anxiety, Depression, Diabetes-Type II, High Cholesterol, Hypertension Additional Past Medical Hx: AGROPHOBIA Surgical History: Other Surgical History Other: ABD HERNIA REPAIR RN Note Reviewed/Agreed w/PFSH: Yes Review of System Dictation Cardiovascular: Chest pain Psych: Anxious Initial Vital Sign VS Vital Signs Date Time Temp Pulse Resp B/P (MAP) Pulse Ox O2 Delivery O2 Flow Rate FiO2 08/31/25 18:22 97.7 56 18 121/85 100 Room Air 0 08/31/25 20:22 21 Physical Exam Dictation General: awake, alert, anxious Head/Face: Normocephalic, atraumatic Eyes: PERRL, EOMI ENT: Oral mucosa moist Neck: Trachea midline, supple Cardiovascular: RRR, no edema Respiratory: Symmetrical, non-labored Abdomen: Soft, non-tender, non-distended, no guarding. Skin: Warm, dry, good turgor, no rash MS/Extremity: Pulses equal, no cyanosis, neurovascular intact, FROM Neuro: COAx4, GCS 15, steady gait, Psych: Anxious, not suicidal, not homicidal. Results (Laboratory/Radiology) Laboratory/Radiology Laboratory Tests Test 08/31/25 18:50 White Blood Count 6.3 K/uL (4.8-10.8) Red Blood Count 4.98 MIL/uL (4.50-6.20) Hemoglobin 15.3 g/dL (14.0-18.0) Hematocrit 45.5 % (42-54) Mean Corpuscular Volume 91.4 fL (79-99) Mean Corpuscular Hemoglobin 30.7 pg (27.0-33.0) Mean Corpuscular Hemoglobin Concent 33.6 g/dL (32.0-36.0) Red Cell Distribution Width 12.9 % (11.0-15.5) Platelet Count 280 K/uL (130-400) Mean Platelet Volume 9.2 fL (7.5-10.5) Immature Granulocyte % (Auto) 0.3 % (0-1) Neutrophils (%) (Auto) 53.7 % (40.0-77.0) Lymphocytes (%) (Auto) 35.1 % (21.0-51.0) Monocytes (%) (Auto) 8.7 % (3.0-13.0) Eosinophils (%) (Auto) 1.7 % (0.0-8.0) Basophils (%) (Auto) 0.5 % (0.0-5.0) Neutrophils # (Auto) 3.4 K/uL (1.8-7.7) Lymphocytes # (Auto) 2.2 K/uL (1.0-4.8) Monocytes # (Auto) 0.6 K/uL (0.1-1.0) Eosinophils # (Auto) 0.11 K/uL (0.00-0.70) Basophils # (Auto) 0.03 K/uL (0.00-0.20) Absolute Immature Granulocyte (auto 0.02 K/uL (0-1) Nucleated Red Blood Cells 0.0 % (0.0-0.19) Sodium Level 132 mmol/L (136-145) L Potassium Level 4.9 mmol/L (3.5-5.1) Chloride Level 96 mmol/L (101-111) L Carbon Dioxide Level 26 mmol/L (21-32) Blood Urea Nitrogen 21 mg/dL (7-18) H Creatinine 1.2 mg/dL (0.5-1.3) Glomerular Filtration Rate Calc 66 mL/min (>90) Random Glucose 138 mg/dL (70-105) H Total Calcium 9.8 mg/dL (8.5-10.1) Total Creatine Kinase 94 U/L (21-232) # Troponin I High Sensitivity 7 ng/L (4-75) EKG: (+) NSR EKG Comment: EKG done 08/31/2025 at 6:14 p.m. Ventricular rate 57 bpm NM 74 MS QRS 167 MS QT 447 MS No STEMI. ED Course ED Course Orders Procedure Category Date Status Time Vital Signs Per CPOE 08/31/25 Transmitted Routine 18:29 Chest 1vw RAD 08/31/25 Resulted 18:29 12 Lead Ekg Tracing- EKG 08/31/25 Logged Technical 18:29 Maintain Iv CPOE 08/31/25 Transmitted 18:29 Iv Insertion CPOE 08/31/25 Transmitted 18:29 Cardiac Monitoring CPOE 08/31/25 Transmitted 18:29 Pulse Oximetry With CPOE 08/31/25 Transmitted Vs And Prn 18:29 Cbc With Differential LAB 08/31/25 Complete 18:29 Activity: Br W/Brp CPOE 08/31/25 Transmitted With Assist 18:29 Creatine Kinase, Total LAB 08/31/25 Complete 18:29 Troponin I High LAB 08/31/25 Complete Sensitivity 18:29 Urinalysis Profile LAB 08/31/25 Logged 18:29 Basic Metabolic Panel LAB 08/31/25 Complete 18:29 Vital Signs Date Time Temp Pulse Resp B/P (MAP) Pulse Ox O2 Delivery O2 Flow Rate FiO2 08/31/25 20:22 98.4 54 18 116/74 98 Room Air* 0 21 08/31/25 18:22 97.7 56 18 121/85 100 Room Air 0 HEART Score Response (Comments) Value History: Low suspicion (0) 0 EKG: Normal 0 Age: 45-65yrs (+1) 1 Risk Factors: 1-2 risk factors (+1) 1 Initial Troponin: Normal limit (0) 0 HEART Score Risk: Low Risk for MACE (1-3) Total 2 Medical Decision Making MDM MDM: Differential diagnosis: Chest pain, STEMI, non STEMI. Rationale: Tests considered and ordered secondary to shared decision making include: Previous outside records reviewed: Old ER visits. Risk of complication and/or morbidity or mortality of patient management: None Medications-Per medication reconciliation Need for hospitalization: Patient does not meet criteria for hospitalization. Need for emergency major/minor surgery: No There are no social concerns with this patient. Prescription drug management Prescriptions will include symptomatic care Patient's prior external medical records from other ER visits were reviewed by me as indicated. Prior testing and results from previous visits were reviewed. Prior tests were taken into account with medical decision making and resource utilization, independent historian/historians were used to obtain complete medical history. I independently interpreted the test that were performed, results were reviewed by me and considered findings on radiology if ordered. Medical management and examination interpretation discussions were had by me wi th other qualified healthcare professionals as indicated for the patient's care. DX & DISP Disposition: Discharge Departure Impression: Primary Impression: Chest pain Additional Impression: History of anxiety Condition: Stable Referrals: LARY HERNANDEZ MD (PCP) Time of Disposition: 21:29 TODD KIM Aug 31, 2025 21:30
[2025-08-31 22:14] VITALS: BP 110/68; PULSE 56; RESP 20; TEMP 98.5; O2SAT 99
--- NOTE | 2025-09-01 05:41 | EKG ---
[facility] Test Date: 2025-08-31 Test Time: 18:14:38 Pat Name: JUAN CARLOS MORILLO Department: ED Room: Gender: M Senior Business Manager: [id number] : 1955 Requested By: GIANFRANCO BRANDON Order Number: [id number] Reading MD: Jose Estrada Measurements Intervals [place] Rate: 57 P: 0 NV: 74 QRS: 18 QRSD: 161 T: -3 QT: 447 QTc: 437 Interpretive Statements Sinus rhythm Right bundle branch block Compared to ECG 05/07/2025 06:24:38 No significant changes Electronically Signed On 09-02-2025 20:58:00 DIAGNOSTIC TECHNICIAN by Jose Estrada Please click the below link to view image of tracing.
== END 2025-08-31 22:14 | disposition home or self-care (01) ==
LOC: EDH 18:21
DX: R07.89 Other chest pain (principal); F41.9 Anxiety disorder, unspecified; E11.9 Type 2 diabetes mellitus without complications; E78.00 Pure hypercholesterolemia, unspecified; I10 Essential (primary) hypertension; F32.A Depression, unspecified; Z79.899 Other long term (current) drug therapy; Z98.890 Other specified postprocedural states
CPT/HCPCS: 36415; 71045; 80048; 82550; 84484; 85025; 93005; 99284; 99285